=== PATIENT | male | born 1955 | race Caucasian/White ===

== ENCOUNTER → 2017-07-30 | Outpatient (CLI) | payer OTHER ==
[~2017-07-30] MED LIST: AC325T PO; ACHD5005 PO; ASCO1TAB17 PO; ASP325T; ASPI-892 PO; CEFU500T5 PO; CIPR500T78 PO; CLPD75T PO; LSRT50T PO; METO-272 PO; MTP25TSR; ONDA8TAB13 PO; OXYC-12 PO; PHEN200T27 PO; POLY119P PO; RED600TA PO; Red Yeast Rice PO; SERT100T8 PO; SERT50TA9 PO; SIMV80TA3; VENL150C; VNL75CCR PO
== END ==
LOC: CARD 10:27
PROVIDERS: ATTEND Nurse Practitioner Family
DX: I25.10 Atherosclerotic heart disease of native coronary artery without angina pectoris (principal); I25.5 Ischemic cardiomyopathy; I65.23 Occlusion and stenosis of bilateral carotid arteries; R06.09 Other forms of dyspnea; E78.4 Other hyperlipidemia; Z95.810 Presence of automatic (implantable) cardiac defibrillator; Z72.0 Tobacco use
CPT/HCPCS: 93306

== ENCOUNTER → 2019-10-20 | Outpatient (CLI) | payer OTHER | LOC: LAB 08:57 | PROVIDERS: ATTEND Family Medicine | DX: Z12.5 Encounter for screening for malignant neoplasm of prostate (principal); I10 Essential (primary) hypertension; E78.5 Hyperlipidemia, unspecified; Z79.899 Other long term (current) drug therapy ==

== ENCOUNTER → 2019-12-27 | Outpatient (CLI) | payer OTHER | LOC: CARD 09:39 | PROVIDERS: ATTEND Nurse Practitioner Family | DX: I25.10 Atherosclerotic heart disease of native coronary artery without angina pectoris (principal); I25.5 Ischemic cardiomyopathy; I77.89 Other specified disorders of arteries and arterioles; E78.5 Hyperlipidemia, unspecified; Z72.0 Tobacco use; I34.0 Nonrheumatic mitral (valve) insufficiency | CPT/HCPCS: 93306 ==

== ENCOUNTER → 2020-03-27 | Outpatient (CLI) | payer OTHER, MEDICARE ==
[~2020-03-27] MED LIST changes: +CATHETER FLUSH 10 ML SYR IV PRN; +REGADENOSON 0.4 MG/5 ML SYR (LEXISCAN) IV ONE
[2020-03-27 10:06] VITALS: BP 127/77
--- NOTE | 2020-03-28 14:03 | STRESS TEST ---
DATE OF SERVICE: RESTING AND POST REGADENOSON TECHNETIUM-99M TETROFOSMIN SPECT CT IMAGING ORDERING PHYSICIAN: Dr. Bueno. PRIMARY PHYSICIAN: Dr. Chatterjee. CLINICAL DIAGNOSIS: Coronary artery disease, cardiomyopathy. Baseline images were carried out after injection of 10.75 mCi of technetium-99m Tetrofosmin. This was followed by 0.4 mg regadenoson and 32.1 mCi of technetium-99m Tetrofosmin for stress imaging. The electrocardiogram showed sinus rhythm at baseline. There was nonspecific ST and T-wave abnormality. The electrocardiogram did not change significantly with regadenoson infusion. The patient noted some shortness of breath following regadenoson infusion, which resolved in a few minutes. Review of images at rest and following stress indicates an apical and septal myocardial infarction with minimal jacobo-infarct ischemia. Gated images show apical and septal akinesis. Left ventricular ejection fraction is calculated to be 28%. Left ventricular end diastolic volume 144 mL. TID is absent (1.2). CONCLUSIONS: 1. Septal and apical myocardial infarction with minimal jacobo-infarct ischemia. 2. Septal and apical akinesis. 3. Cardiomegaly. 4. Impairment of global left ventricular systolic function with a calculated ejection fraction of 28%. Job ID: [id number] DocumentID: [id number] Dictated Date: 03/28/2020 13:23:06 General Assignment Reporter Date: 03/28/2020 14:01:58 Dictated By: THAD BUENO MD, MA, FACP, FACC,
== END ==
LOC: CARD 08:20
PROVIDERS: ATTEND Internal Medicine Cardiovascular Disease
DX: I25.10 Atherosclerotic heart disease of native coronary artery without angina pectoris (principal); I25.5 Ischemic cardiomyopathy; I25.2 Old myocardial infarction; I65.23 Occlusion and stenosis of bilateral carotid arteries; E78.5 Hyperlipidemia, unspecified; I51.7 Cardiomegaly; I51.89 Other ill-defined heart diseases; Z72.0 Tobacco use
CPT/HCPCS: 78452; 93017; A9502